=== PATIENT | male | born 1995 | race American Indian/Alaskan Native ===

== ENCOUNTER 2017-08-29 18:28 | Emergency (ER) | payer SELFPAY ==
[2017-08-29 19:32] VITALS: BP 118/63
--- NOTE | 2017-08-29 20:45 | Emergency Department Report ---
ED Laceration HPI - HPI Chief Complaint: Laceration/Recheck/Suture Stated Complaint: R EYE LAC Time Seen by Provider: 08/29/17 20:25 Occurred When: Today Location: Head (laceration on right eyebrow) Severity: mild Laceration Symptoms: No Foreign Body Sensation, No Numbness, No Weakness, No Pain (only when eyelid rise up) Other History: This is a 22 y.o. male that presents with a laceration on right eyelid. He was playing contact football today with friends and his friend head butted him to avoid tackle. He noticed a cut on right eyebrow. He cleaned with peroxide spray, applied bandaid and came to the ER. Denies LOC, chest pain, SOB , numbness/tingling, and N/V. ED Review of Systems ROS: Stated complaint: R EYE LAC Other details as noted in HPI Constitutional: denies: chills, fever, weakness Eyes: other (lacertion on right eyebrow). denies: eye pain, eye discharge, vision change ENT: denies: ear pain, throat pain Respiratory: denies: cough, shortness of breath, wheezing Cardiovascular: denies: chest pain, palpitations Gastrointestinal: denies: abdominal pain, nausea, diarrhea Skin: other (laceration on right eyebrow). denies: rash, lesions Neurological: denies: headache, weakness, numbness, paresthesias ED Past Medical Hx - Past Medical History Previous Medical History?: No - Surgical History Additional Surgical History: right knee - Social History Smoking Status: Never Smoker Substance Use Type: None - Medications Home Medications: Home Medications Medication Instructions Recorded Confirmed Last Taken Type No Known Home Medications [No 08/29/17 08/29/17 Unknown History Reported Home Medications] Laceration Physical Exam - Exam General: Vital signs noted. No distress. Alert and acting appropriately. Laceration Location: Other (right eye brow) Full Body Front + Back: 1 - 2 cm superfical laceration on right eyebrow, no tendon or vessel exposed. Laceration Exam: Yes Normal Distal CMS, No Foreign Body, No Exposed Tendon, Vessel, or Nerve, No Tendon Injury ED Course Vital Signs 08/29/17 19:30 Temperature 97.8 F Pulse Rate 59 L Respiratory 16 Rate Blood Pressure 118/63 O2 Sat by Pulse 100 Oximetry - Laceration /Wound Repair Right Upper Face Wound Location: face (right eyebrow) Wound Length (cm): 2 Wound's Depth, Shape: superficial, into muscle, linear Wound Explored: clean Irrigated w/ Saline (ccs): 8 Betadine Prep?: Yes Anesthesia: 1% Lidocaine Volume Anesthetic (ccs): 1 Wound Repaired With: sutures Suture Size/Type: 5:0 Number of Sutures: 5 Layer Closure?: No ED Medical Decision Making - Medical Decision Making This is a 22 y.o. male presents with laceration on right eyebrow today from playing football. Unsure of last tetanus. Patient examined by me. 2 cm superficial laceration to right eyebrow. Patient is non-toxic appearing and stable. Applied 5 sutures, refer to suture note. Given tetanus vaccine in ER. Discharged home and instructed to f/u with PCP or return ER for suture removal in 5-7 days. Discussed ER care plan with patient. Patient agreed with plan. F/U with PCP. Critical care attestation.: If time is entered above; I have spent that time in minutes in the direct care of this critically ill patient, excluding procedure time. ED Disposition Clinical Impression: Laceration Laceration of skin of face Qualifiers: Encounter type: initial encounter Qualified Code(s): S01.81XA - Laceration without foreign body of other part of head, initial encounter Disposition: - TO HOME OR SELFCARE Is pt being admited?: No Does the pt Need Aspirin: No Condition: Stable Instructions: Laceration (ED), Suture Care (ED) Additional Instructions: Follow up with Primary Care Provider. Have sutures removed by primary care provider or return to ER in 5 days. Avoid applying ointment over wound. Return to ER if red, swollen, foul discharge, or fever. Referrals: DULCE MARIA SALMON MD [Primary Care Provider] - 3-5 Days [facility] [Outside] - 3-5 Days O Entreg[facility] [Provider Group] - 3-5 Days [facility] [Provider Group] - 3-5 Days Time of Disposition: 21:39 Print Language: EMIRATI
[2017-08-29] MEDS ORDERED: XYLOCAINE 1% MPF 5 mL ONE (20:51)
[2017-08-29] MEDS ORDERED: XYLOCAINE 1% MPF 5 mL INFILTRATI ONE (20:51)
[2017-08-29] MEDS ORDERED: BOOSTRIX IM ONE (21:41)
== END 2017-08-29 21:45 | disposition home or self-care (01) ==
LOC: ED 18:28
DX: S01.81XA Laceration without foreign body of other part of head, initial encounter (principal); X58.XXXA Exposure to other specified factors, initial encounter; Y93.89 Activity, other specified; Y92.89 Other specified places as the place of occurrence of the external cause; Y99.8 Other external cause status
CPT/HCPCS: 90471; 90715; 96372; 99282